=== PATIENT | male | born 1985 ===

== ENCOUNTER 2017-02-26 20:54 | Inpatient (IN) | payer BC ==
[~2017-02-26] VITALS: Ht 180.3 cm; Wt 80.2 kg
[~2017-02-26 20:54] MED LIST: MTR400 PO
[2017-02-26] MEDS ORDERED: SODIUM CHLORIDE 0.9% 1000ML 1,000 ML IV STA ×2 (22:05)
[2017-02-26] MEDS ORDERED: RANITIDINE HCL 50 MG/100 ML D5W IV STA ×2 (22:05→23:37)
[2017-02-26] MEDS ORDERED: DICYCLOMINE HCL 10 MG/ML 2 ML AMP IM ONE (22:15)
[2017-02-26] MEDS ORDERED: OPTIRAY 320 IV PRN (22:15)
[2017-02-26 22:45] LABS: BASO % 0.3 %; BASO ABS # 0.03 K/uL (0-0.2); COMPLETE YES; HEMATOCRIT 44.1 % (42-52); IG% 0.4 %; LYMPH % 19.1 %; LYMPH ABS # 2.09 K/uL (1.2-3.4); MEAN CELL VOLUME 88.4 fL (80-100); MEAN CORPUSCULAR HEMOGLOBIN 30.5 pg (25-34); MEAN CORPUSCULAR HGB CONC 34.5 g/dl (32-36); MEAN PLATELET VOLUME 10.4 fL (7.4-10.4); MONO % 11.4 %; NEUT % 67.8 %; PLATELET COUNT 298 K/uL (130-400); RED BLOOD COUNT 4.99 M/uL (4.7-6.1); WHITE BLOOD COUNT 10.95 K/uL (4.8-10.8)
[2017-02-26 22:52] LABS: URINE APPEARANCE CLEAR (CLEAR); URINE BILIRUBIN NEG (NEG); URINE COLOR DK YELLOW; URINE NITRITE NEG (NEG); URINE SPECIFIC GRAVITY 1.036 (1.000-1.030); UROBILINOGEN NEG (NEG)
[2017-02-26 22:53] LABS: MANUAL MICROSCOPIC REQUIRED? NO; REVIEW REQ? NO
[2017-02-26 22:57] LABS: BUN/CREATININE RATIO 10.2 (10-20); POTASSIUM 3.6 mmol/L (3.5-5.1)
[2017-02-26 23:00] LABS: CALCIUM 8.8 mg/dl (8.5-10.1)
[2017-02-26] MEDS ORDERED: DiphenhydrAMINE HCL 50 MG/ML VIAL IV STA (23:37)
[2017-02-26] MEDS ORDERED: EPINEPHRINE ADULT AUTO-INJECT 0.3 MG SYR ONE (23:42)
[2017-02-26] MEDS ORDERED: DEXAMETHASONE SOD INJ 10 MG/ML VIAL IV ONE (23:45)
[2017-02-27] MEDS ORDERED: CIPROFLOXACIN 400MG / 200ML D5W IV STA (00:13)
[2017-02-27] MEDS ORDERED: LORAZEPAM 2 MG/ML 1 ML VIAL IV STA (00:13)
[2017-02-27] MEDS ORDERED: METRONIDAZOLE 500MG / 100ML NSS IV STA (00:13)
[2017-02-27] MEDS ORDERED: POLYETHYLENE (MIRALAX) 17 GM PACK PO PRN (01:30)
[2017-02-27] MEDS ORDERED: KETOROLAC TROMETHAMINE 30 MG/ML VIAL IV PRN (01:30)
[2017-02-27] MEDS ORDERED: MoRPHine SULFATE 2 MG/ML CARP IV PRN (01:30)
[2017-02-27] MEDS ORDERED: ONDANSETRON INJ 2 MG/ML 2 ML VIAL IV PRN (01:30)
[2017-02-27] MEDS ORDERED: ACETAMINOPHEN 325 MG TAB PO PRN (01:30)
[2017-02-27 02:25] VITALS: BP 120/67; PULSE 81; TEMP 37; O2SAT 97; Ht 180.3 cm; Wt 80.2 kg
--- NOTE | 2017-02-27 02:38 | History and Physical ---
History & Physical Date & Time of Service: Feb 27, 2017 at 02:33 Chief Complaint: Abd Pain,Fever,Weakness,Indigestion Primary Care Physician: No Doctor, Assigned History of Present Illness Source: patient, spouse 31-year-old male with no significant past medical history presented to the ER with complaints of abdominal pain which started yesterday after dinner. He stated that the pain was intermittent in the lower abdominal area with radiation to his testicle, 6 to 8 on a scale of 10 in severity. Complains of nausea but denies any vomiting. Has a history of constipation but last bowel movement was this morning. He also developed fever with chills and recorded his temperature at 100.9F this morning. Denies any bright red bleeding per rectum or melena. Denies chest pain, shortness of breath, palpitations Past Medical/Surgical History No significant medical history Family History Family history of stroke in father at age 42. OK in grandfather at age 55 Hypertension Diabetes Social History Smoking Status: Former Smoker Alcohol Use: socially Marital Status: Allergies Coded Allergies: Cat Dander (Unverified Allergy, Unknown, EYES WATER, 11/14/15) Dust (Unverified Allergy, Unknown, EYES WATER/CAN'T BREATHE, 11/14/15) Uncoded Allergies: CT CONTRAST (Allergy, Intermediate, itchy, chest tightness, 02/27/17) Home Medications No Active Prescriptions or Reported Meds Review of Systems Constitutional: + fever, + chills, + sweats Eyes: No worsening of vision ENT: No hearing loss, No unusual epistaxis Respiratory: No cough, No sputum, No shortness of breath, No dyspnea on exertion Cardiovascular: No chest pain Abdomen: + pain, + nausea, + vomiting, + constipation, No diarrhea Musculoskeletal: No joint pain Genitourinary - Male: No hematuria, No dysuria Neurologic: No memory loss Psychiatric: No depression symptoms Endocrine: No fatigue Hematologic / Lymphatic: No abnormal bleeding/bruising Integumentary: No rash Physical Exam Vital Signs Date Time Temp Pulse Resp B/P (MAP) Pulse Ox O2 Delivery O2 Flow Rate FiO2 02/27/17 01:56 86 16 122/75 98 Room Air 02/26/17 23:41 80 02/26/17 23:40 83 24 122/87 98 Room Air 02/26/17 22:41 97 Room Air 02/26/17 21:11 37.1 103 18 128/78 97 Room Air General Appearance: WD/WN, + mild distress Head: normocephalic Eyes: normal inspection ENT: hearing grossly normal Neck: supple Respiratory/Chest: chest non-tender, lungs clear, normal breath sounds, no respiratory distress, no accessory muscle use Cardiovascular: regular rate, rhythm Abdomen/GI: normal bowel sounds, + tenderness (in lower abdominal area) Extremities/Musculoskelatal: normal inspection, no calf tenderness, no pedal edema Neurologic/Psych: alert, normal mood/affect, oriented x 3 Diagnostics Laboratory Results Results Past 24 Hours Test 02/26/17 22:25 02/26/17 22:29 02/26/17 22:38 Range/Units White Blood Count 10.95 4.8-10.8 K/uL Red Blood Count 4.99 4.7-6.1 M/uL Hemoglobin 15.2 14.0-18.0 g/dL Hematocrit 44.1 42-52 % Mean Corpuscular Volume 88.4 80-100 fL Mean Corpuscular Hemoglobin 30.5 25-34 pg Mean Corpuscular Hemoglobin Concent 34.5 32-36 g/dl Platelet Count 298 130-400 K/uL Mean Platelet Volume 10.4 7.4-10.4 fL Neutrophils (%) (Auto) 67.8 % Lymphocytes (%) (Auto) 19.1 % Monocytes (%) (Auto) 11.4 % Eosinophils (%) (Auto) 1.0 % Basophils (%) (Auto) 0.3 % Neutrophils # (Auto) 7.43 1.4-6.5 K/uL Lymphocytes # (Auto) 2.09 1.2-3.4 K/uL Monocytes # (Auto) 1.25 0.11-0.59 K/uL Eosinophils # (Auto) 0.11 0-0.5 K/uL Basophils # (Auto) 0.03 0-0.2 K/uL RDW Standard Deviation 41.9 36.4-46.3 fL RDW Coefficient of Variation 13.0 11.5-14.5 % Immature Granulocyte % (Auto) 0.4 % Immature Granulocyte # (Auto) 0.04 0.00-0.02 K/uL Sodium Level 139 136-145 mmol/L Potassium Level 3.6 3.5-5.1 mmol/L Chloride Level 104 98-107 mmol/L Carbon Dioxide Level 25 21-32 mmol/L Anion Gap 10.0 3-11 mmol/L Blood Urea Nitrogen 10 7-18 mg/dl Creatinine 1.00 0.60-1.40 mg/dl Est Creatinine Clear Calc Drug Dose 115.0 ml/min Estimated GFR () 116.5 Estimated GFR (Non- 100.6 BUN/Creatinine Ratio 10.2 10-20 Random Glucose 105 70-99 mg/dl Calcium Level 8.8 8.5-10.1 mg/dl Total Bilirubin 0.7 0.2-1 mg/dl Direct Bilirubin 0.2 0-0.2 mg/dl Aspartate Amino Transf (AST/SGOT) 20 15-37 U/L Alanine Aminotransferase (ALT/SGPT) 40 12-78 U/L Alkaline Phosphatase 97 45-117 U/L Total Protein 8.2 6.4-8.2 gm/dl Albumin 3.9 3.4-5.0 gm/dl Lipase 144 73-393 U/L Bedside Lactic Acid Venous 0.87 0.90-1.70 mmol/L Urine Color DK YELLOW Urine Appearance CLEAR CLEAR Urine pH 5.0 4.5-7.5 Urine Specific [place] 1.036 1.000-1.030 Urine Protein NEG NEG Urine Glucose (UA) NEG NEG Urine Ketones TRACE NEG Urine Occult Blood NEG NEG Urine Nitrite NEG NEG Urine Bilirubin NEG NEG Urine Urobilinogen NEG NEG Urine Leukocyte Esterase NEG NEG Microbiology Results 02/27/17 Blood Culture, Received Pending 02/27/17 Blood Culture, Received Pending Diagnostic Radiology CT abdomen and pelvis: Findings consistent with acute diverticulitis with suspected findings of microperforation. No organized or drainable fluid collection Impression Assessment and Plan 31-year-old male with no significant past medical history presented to the ER with complaints of abdominal pain which started yesterday after dinner. Associated with nausea, fevers and chills. CT abdomen and pelvis significant for acute diverticulitis with microperforation. Sigmoid Diverticulitis with microperforation: - Confirmed on CT - Nothing by mouth - IV fluids NSS at 125 mls/hr - Continue ciprofloxacin and Flagyl - Pain control with Toradol and morphine as needed - Gen. surgery consult DVT prophylaxis: Lovenox Full code Disposition: Admitted to [facility] Resident Physician Supervision Note: Pt seen/examined independently. I discussed the case with the resident and agree with the findings and plan as documented in the note. Any exceptions or clarifications are listed here: Healthy 31 y/o M with acute onset abdominal pain - diverticulitis with likely microperf seen on CT OE AAO x 3 S1,2 R CTAB + LLQ tenderness No CCE P: Placed on Cipro/Flagyl, NPO, IVF, pain control - surgery eval Documented By: Jeb Finnegan Level of Care Med/Surg Resuscitation Status FULL RESUSCITATION VTE Prophylaxis VTE Risk Assessment Done? Y/N: Yes Risk Level: Moderate Given or contraindicated: Enoxaparin (Lovenox)SQ Resident Tracking Resident Involvement: Resident Care Provided Care Provided: Adult Hospital Medicine
[2017-02-27] MEDS: SODIUM CHLORIDE 0.9% 1000ML 1,000 ML IV SCH ×2 (02:51→11:47)
[2017-02-27 03:03] LABS: PROTHROMBIN TIME (PATIENT) 10.4 SECONDS (9.0-12.0)
--- NOTE | 2017-02-27 03:24 | EMERGENCY ROOM VISIT NOTE ---
History First contact with patient: 21:59 Chief Complaint: ABDOMINAL PAIN Stated Complaint: DIVERTICULITIS LARGE INTESTINE Nursing Triage Summary: Pt c/o mid abdominal pain that started last night with associated nausea and vomiting. History of Present Illness The patient is a 31 year old male who presents to the Emergency Room with complaints of mid to lower abdominal pain for the past day with nausea and vomiting is Progressively worse. Patient's been eating a lot of take out. He just moved to the area with his . No history of similar symptoms in the past. Pain currently 5 out of 10. Ranges in severity. Nothing makes it better or worse. Patient denies chest pain, dyspnea, cough, congestion, diarrhea, back pain. He complains of subjective fever and chills. No colonoscopy in the past. Review of Systems See HPI for pertinent positives & negatives. A total of 10 systems reviewed and were otherwise negative. Past Medical/Surgical History Medical Problems: (1) Diverticulitis large intestine (2) No Known Active Medical Problems Social History Smoking Status: Former Smoker Smokeless Tobacco Use: No Drug Use: none Marital Status: Current/Historical Medications No Active Prescriptions or Reported Meds Allergies Coded Allergies: Cat Dander (Unverified Allergy, Unknown, EYES WATER, 11/14/15) Dust (Unverified Allergy, Unknown, EYES WATER/CAN'T BREATHE, 11/14/15) Uncoded Allergies: CT CONTRAST (Allergy, Intermediate, itchy, chest tightness, 02/27/17) Physical Exam Vital Signs Date Time Temp Pulse Resp B/P (MAP) Pulse Ox O2 Delivery O2 Flow Rate FiO2 02/26/17 23:41 80 02/26/17 23:40 83 24 122/87 98 Room Air 02/26/17 22:41 97 Room Air 02/26/17 21:11 37.1 103 18 128/78 97 Room Air Pain Rating (0-10): 0 Physical Exam VITALS: Vitals are noted on the nurse's note and reviewed by myself. Vital signs stable. GENERAL: Pleasant male anxious-appearing, in no acute distress, nondiaphoretic, well-developed well-nourished. SKIN: The skin was without rashes, erythema, edema, or bruising. There is no tenting of the skin. Capillary reflex less than 2 seconds. HEAD: Normocephalic atraumatic. EARS: External auditory canals clear, tympanic membranes pearly mcdowell without erythema or effusion bilaterally. EYES: Pupils equal round and reactive to light and accommodation. Conjunctivae without injection, sclerae without icterus. Extraocular movements intact. NOSE: Patent, turbinates without inflammation or discharge. MOUTH: Mucous membranes moist. Pharynx without erythema or exudate. Uvula midline. Airway patent. Tongue does not deviate. NECK: Supple without nuchal rigidity. No lymphadenopathy. No thyromegaly. Cervical spine is nontender. No JVD. HEART: Regular rate and rhythm without murmurs gallops or rubs. LUNGS: Clear to auscultation bilaterally without wheezes, rales or rhonchi. No dullness to percussion. No retractions or accessory muscle use. ABDOMEN: Positive bowel sounds x 4. Normal tympanic percussion. Soft, tender to palpation lower abdomen, no CVA tenderness, without masses or organomegaly. Salazar sign negative. No guarding or rebound tenderness. MUSCULOSKELETAL: No muscle atrophy, erythema, or edema noted. NEURO: Patient was alert and oriented to person place and time. Normal sensation to light and sharp touch. No focal neurological deficits. Medical Decision & Procedures Laboratory Results 02/26/17 22:25 Red Blood Count 4.99, Mean Corpuscular Volume 88.4, Mean Corpuscular Hemoglobin 30.5, Mean Corpuscular Hemoglobin Concent 34.5, Mean Platelet Volume 10.4, Neutrophils (%) (Auto) 67.8, Lymphocytes (%) (Auto) 19.1, Monocytes (%) (Auto) 11.4, Eosinophils (%) (Auto) 1.0, Basophils (%) (Auto) 0.3, Neutrophils # (Auto ) 7.43, Lymphocytes # (Auto) 2.09, Monocytes # (Auto) 1.25, Eosinophils # (Auto ) 0.11, Basophils # (Auto) 0.03 02/26/17 22:25 Test 02/26/17 22:25 02/26/17 22:29 02/26/17 22:38 White Blood Count 10.95 K/uL (4.8-10.8) Red Blood Count 4.99 M/uL (4.7-6.1) Hemoglobin 15.2 g/dL (14.0-18.0) Hematocrit 44.1 % (42-52) Mean Corpuscular Volume 88.4 fL (80-100) Mean Corpuscular Hemoglobin 30.5 pg (25-34) Mean Corpuscular Hemoglobin Concent 34.5 g/dl (32-36) Platelet Count 298 K/uL (130-400) Mean Platelet Volume 10.4 fL (7.4-10.4) Neutrophils (%) (Auto) 67.8 % Lymphocytes (%) (Auto) 19.1 % Monocytes (%) (Auto) 11.4 % Eosinophils (%) (Auto) 1.0 % Basophils (%) (Auto) 0.3 % Neutrophils # (Auto) 7.43 K/uL (1.4-6.5) Lymphocytes # (Auto) 2.09 K/uL (1.2-3.4) Monocytes # (Auto) 1.25 K/uL (0.11-0.59) Eosinophils # (Auto) 0.11 K/uL (0-0.5) Basophils # (Auto) 0.03 K/uL (0-0.2) RDW Standard Deviation 41.9 fL (36.4-46.3) RDW Coefficient of Variation 13.0 % (11.5-14.5) Immature Granulocyte % (Auto) 0.4 % Immature Granulocyte # (Auto) 0.04 K/uL (0.00-0.02) Prothrombin Time 10.4 SECONDS (9.0-12.0) Prothromb Time International Ratio 1.0 (0.9-1.1) Anion Gap 10.0 mmol/L (3-11) Est Creatinine Clear Calc Drug Dose 115.0 ml/min Estimated GFR () 116.5 Estimated GFR (Non- 100.6 BUN/Creatinine Ratio 10.2 (10-20) Calcium Level 8.8 mg/dl (8.5-10.1) Total Bilirubin 0.7 mg/dl (0.2-1) Direct Bilirubin 0.2 mg/dl (0-0.2) Aspartate Amino Transf (AST/SGOT) 20 U/L (15-37) Alanine Aminotransferase (ALT/SGPT) 40 U/L (12-78) Alkaline Phosphatase 97 U/L (45-117) Total Protein 8.2 gm/dl (6.4-8.2) Albumin 3.9 gm/dl (3.4-5.0) Lipase 144 U/L (73-393) Bedside Lactic Acid Venous 0.87 mmol/L (0.90-1.70) Urine Color DK YELLOW Urine Appearance CLEAR (CLEAR) Urine pH 5.0 (4.5-7.5) Urine Specific [place] 1.036 (1.000-1.030) Urine Protein NEG (NEG) Urine Glucose (UA) NEG (NEG) Urine Ketones TRACE (NEG) Urine Occult Blood NEG (NEG) Urine Nitrite NEG (NEG) Urine Bilirubin NEG (NEG) Urine Urobilinogen NEG (NEG) Urine Leukocyte Esterase NEG (NEG) Medications Administered Medications (Trade) Dose Ordered Sig/Keegan Route Start Time Stop Time Status Last Admin Dose Admin Ranitidine HCl (zANTac IV) 50 mg NOW STAT IV 02/26/17 22:05 02/26/17 22:07 DC 02/26/17 22:26 50 MG Dicyclomine HCl (Bentyl Inj) 20 mg NOW ONCE IM 02/26/17 22:15 02/26/17 22:16 DC 02/26/17 22:27 20 MG Sodium Chloride 1,000 ml @ 999 mls/hr Q1H1M STAT IV 02/26/17 22:05 02/26/17 23:05 DC 02/26/17 22:27 999 MLS/HR Sodium Chloride 1,000 ml @ 125 mls/hr Q8H STAT IV 02/26/17 22:05 02/27/17 02:45 DC 02/26/17 23:44 125 MLS/HR Diphenhydramine HCl (Benadryl Inj) 50 mg NOW STAT IV 02/26/17 23:37 02/26/17 23:38 DC 02/26/17 23:43 50 MG Ranitidine HCl (zANTac IV) 50 mg NOW STAT IV 02/26/17 23:37 02/26/17 23:38 DC 02/26/17 23:54 50 MG Dexamethasone Sodium Phosphate (Decadron Inj) 10 mg NOW ONCE IV 02/26/17 23:45 02/26/17 23:46 DC 02/26/17 23:43 10 MG Metronidazole (Flagyl / Nss) 500 mg NOW STAT IV 02/27/17 00:13 02/27/17 00:15 DC 02/27/17 00:54 500 MG Ciprofloxacin/ Dextrose (Cipro / D5W) 400 mg NOW STAT IV 02/27/17 00:13 02/27/17 00:15 DC 02/27/17 00:54 400 MG Lorazepam (Ativan Inj) 1 mg NOW STAT IV 02/27/17 00:13 02/27/17 00:15 DC 02/27/17 00:36 1 MG ED Course Prior records/ancillary studies reviewed. Triage Nursing notes reviewed. Additional history obtained from family. The patient's history was concerning for abdominal pain. Differential diagnosis: Etiologies such as appendicitis, diverticulitis, PUD, biliary pathology, UTI, pancreatitis, obstruction, mesenteric ischemia, aortic pathology, infections, inflammatory bowel disease, renal colic, as well as others were entertained. Physical examination findings: As above. ER treatment provided: Normal saline, Zantac, Bentyl, Flagyl, Cipro, Decadron, Benadryl On reassessment the patient felt better. Diagnostics interpreted by me: The labs revealed leukocytosis, blood cultures pending Imaging studies: CT concerning for diverticulitis with microperforation When patient came back from CT he felt itchy and tightness in his throat and chest. He was given Benadryl, Zantac and Decadron. Symptoms resolved. He then became anxious was given Ativan. No signs of anaphylactic shock. No rash. No airway involvement. No facial swelling. No tongue edema. This is marked as an allergy. Consultation: A consultation was placed with Dr Finnegan. The case was discussed and diagnostics were reviewed. The patient was evaluated in the ER for further treatment. Exam and history seem consistent with diverticulitis. Patient was started on antibiotics. He will be evaluated by medicine for admission. Family agrees to treatment plan of admission. He was reassessed multiple times and remained stable. No signs of anaphylaxis. By the evaluation outlined above emergent etiologies such as appendicitis, PUD , biliary pathology, UTI, pancreatitis, obstruction, mesenteric ischemia, aortic pathology, inflammatory bowel disease, renal colic, as well as others were deemed relatively unlikely. The pt informed about the findings as listed above. All questions were answered and pleased with the treatment. case reviewed with my Attending. Medical Decision As above Impression Primary Impression: Diverticulitis large intestine Departure Information Dispostion Being Evaluated By Hospitalist Condition FAIR Prescriptions No Active Prescriptions or Reported Meds Referrals No Doctor, Assigned (PCP) Forms Call Back Authorization, HOME CARE DOCUMENTATION FORM, IMPORTANT VISIT INFORMATION Patient Instructions My [facility] Problem Qualifiers Primary Impression: Diverticulitis large intestine Diverticulitis bleeding: without bleeding Diverticulitis complication: with perforation Qualified Codes: K57.20 - Diverticulitis of large intestine with perforation and abscess without bleeding
--- NOTE | 2017-02-27 06:26 | DIAGNOSTIC IMAGING REPORT ---
ABDOMEN AND PELVIS CT WITH IV CONTRAST CT DOSE: 457.95 mGy.cm HISTORY: Pain. Nausea. lower abd pain TECHNIQUE: Multiaxial CT images of the abdomen and pelvis were performed following the use of intravenous contrast. COMPARISON STUDY: None. FINDINGS: Lung bases are clear. Liver spleen and pancreas are unremarkable. Kidneys negative for hydronephrosis. The upper abdominal bowel pattern is nonobstructive. The appendix is normal. Findings of considerable wall thickening of the sigmoid colon with moderate pericolonic infiltrative change. Transaxial image 73 suggests a small microperforation. There is no evidence for drainable abscess or collection. Small amount of free reactive fluid within the pelvic cul-de-sac. Bladder is midline. IMPRESSION: 1. Acute sigmoid diverticulitis. 2. Small microperforation with no evidence for drainable abscess collection or obstructive change. Electronically signed by: Behzad Tejada M.D. 02/27/2017 6:25 AM Dictated Date/Time: 02/27/2017 6:23 AM
[2017-02-27 07:48] VITALS: BP 106/62; PULSE 73; TEMP 36.8; O2SAT 96
--- NOTE | 2017-02-27 08:36 | Hospitalist Progress Note ---
Hospitalist Progress Note Date of Service Feb 27, 2017. Objective Vital Signs Date Time Temp Pulse Resp B/P (MAP) Pulse Ox O2 Delivery O2 Flow Rate FiO2 02/27/17 07:48 36.8 73 18 106/62 (77) 96 Room Air 02/27/17 02:25 37.0 81 16 120/67 97 Room Air 02/27/17 02:20 Room Air 02/27/17 01:56 86 16 122/75 98 Room Air 02/26/17 23:41 80 02/26/17 23:40 83 24 122/87 98 Room Air 02/26/17 22:41 97 Room Air 02/26/17 21:11 37.1 103 18 128/78 97 Room Air Laboratory Results Last 24 Hours Test 02/26/17 22:25 02/26/17 22:29 02/26/17 22:38 White Blood Count 10.95 K/uL Red Blood Count 4.99 M/uL Hemoglobin 15.2 g/dL Hematocrit 44.1 % Mean Corpuscular Volume 88.4 fL Mean Corpuscular Hemoglobin 30.5 pg Mean Corpuscular Hemoglobin Concent 34.5 g/dl Platelet Count 298 K/uL Mean Platelet Volume 10.4 fL Neutrophils (%) (Auto) 67.8 % Lymphocytes (%) (Auto) 19.1 % Monocytes (%) (Auto) 11.4 % Eosinophils (%) (Auto) 1.0 % Basophils (%) (Auto) 0.3 % Neutrophils # (Auto) 7.43 K/uL Lymphocytes # (Auto) 2.09 K/uL Monocytes # (Auto) 1.25 K/uL Eosinophils # (Auto) 0.11 K/uL Basophils # (Auto) 0.03 K/uL RDW Standard Deviation 41.9 fL RDW Coefficient of Variation 13.0 % Immature Granulocyte % (Auto) 0.4 % Immature Granulocyte # (Auto) 0.04 K/uL Prothrombin Time 10.4 SECONDS Prothromb Time International Ratio 1.0 Sodium Level 139 mmol/L Potassium Level 3.6 mmol/L Chloride Level 104 mmol/L Carbon Dioxide Level 25 mmol/L Anion Gap 10.0 mmol/L Blood Urea Nitrogen 10 mg/dl Creatinine 1.00 mg/dl Est Creatinine Clear Calc Drug Dose 115.0 ml/min Estimated GFR () 116.5 Estimated GFR (Non- 100.6 BUN/Creatinine Ratio 10.2 Random Glucose 105 mg/dl Calcium Level 8.8 mg/dl Total Bilirubin 0.7 mg/dl Direct Bilirubin 0.2 mg/dl Aspartate Amino Transf (AST/SGOT) 20 U/L Alanine Aminotransferase (ALT/SGPT) 40 U/L Alkaline Phosphatase 97 U/L Total Protein 8.2 gm/dl Albumin 3.9 gm/dl Lipase 144 U/L Bedside Lactic Acid Venous 0.87 mmol/L Urine Color DK YELLOW Urine Appearance CLEAR Urine pH 5.0 Urine Specific [place] 1.036 Urine Protein NEG Urine Glucose (UA) NEG Urine Ketones TRACE Urine Occult Blood NEG Urine Nitrite NEG Urine Bilirubin NEG Urine Urobilinogen NEG Urine Leukocyte Esterase NEG Assessment and Plan 31-year-old male with no significant past medical history presented to the ER with complaints of abdominal pain which started yesterday after dinner. Associated with nausea, fevers and chills. CT abdomen and pelvis significant for acute diverticulitis with microperforation. Sigmoid Diverticulitis with microperforation: - Confirmed on CT - Keep NPO - IV fluids NSS at 125 mls/hr - Leukocytosis is mild, 10K with small left shift. Afebrile, vitals stable - Continue ciprofloxacin and Flagyl - Pain control with Toradol and morphine as needed - Gen. surgery consult DVT prophylaxis: tiffany Jorgensen, scds CODE STATUS: Full code Disposition: From home
[2017-02-27] MEDS ORDERED: METRONIDAZOLE / NSS 500 MG in PREMIXED NSS 100 ML IV SCH (09:00)
[2017-02-27] MEDS ORDERED: ENOXAPARIN 40 MG/0.4 ML SYR SQ SCH (09:00)
[2017-02-27] MEDS ORDERED: CIPROFLOXACIN / D5W 400 MG in PREMIXED IN D5W 200 ML IV SCH (12:00)
[2017-02-27] MEDS ORDERED: CPR500 PO (12:39)
[2017-02-27] MEDS ORDERED: ONDA4TAB10 SL (12:39)
[2017-02-27] MEDS ORDERED: METR-162 PO (12:39)
--- NOTE | 2017-02-27 12:47 | Discharge Instructions ---
Discharge Instructions Date of Service Feb 27, 2017. Admission Reason for Admission: Diverticulitis Large Intestine Discharge Discharge Diagnosis / Problem: Microperforation of sigmoid diverticulosis Discharge Goals Goal(s): Decrease discomfort, Improve function, Increase independence, Improve disease control Activity Recommendations Activity Limitations: resume your previous activity Lifting Limitations: gradually increase as tolerated Exercise/Sports Limitations: none, rest today, gradually increase as tolerated May Resume Sexual Activity: when tolerated Shower/Bathe: no limitations Driving or Machine Use: no limitations . Instructions / Follow-Up Instructions / Follow-Up You were admitted to [facility] with acute abdominal pain and diagnosed with acute microperforation of sigmoid diverticulitis. During your stay here you were treated with antibiotics (ciprofloxacin and metronidazole), intravenous fluids, pain medication and anti-nausea medication. Imaging studies which were completed include CT of the abdomen showing microperforation of sigmoid diverticulitis Your pain improved and you were able to tolerate a diet. Continue taking antibiotics as directed Cipro (ciprofloxacin) 500 mg twice daily for 9 days Flagyl (metronidazole) 500 mg three times daily for 9 days. Please try to exercise for at least 30 minutes a day with a cardiovascular workout. You should try to consume adequate amounts of vegetables, fruits and whole grains while limiting fats and sugars. - Your residential glucose to test for diabetes ( Hemoglobin A1C is 5.4) was normal, which means you do not have diabetes. Things to watch for: If you develop fever (temperature greater than 100.5 F), chills or sweats, worsening abdominal pain, nausea, vomiting, or are unable to eat food or water, please call your family physician or come back to the Emergency department. Follow up with your Primary Care Provider within 1 week. An appointment has been requested for you. Current Hospital Diet Patient's current hospital diet: Clear Liquid Diet Discharge Diet Recommended Diet: Regular Diet Pending Studies Studies pending at discharge: no Medical Emergencies . Who to Call and When: Medical Emergencies: If at any time you feel your situation is an emergency, please call 911 immediately. . Non-Emergent Contact Non-Emergency issues call your: Primary Care Provider Call Non-Emergent contact if: you have a fever, temperature is above 100.5, your pain is not controlled, your pain is worsening, your pain is unusual for you, your pain is concerning you, you have any medication questions . Past History Medical & Surgical History: (1) Diverticulitis large intestine . "Provider Documentation" section prepared by Meka Loaiza. . VTE Core Measure Inpt VTE Proph given/why not?: Enoxaparin (Lovenox)OCRINA, Poonam Pak, SCD's
[2017-02-27 13:50] LABS: ESTIMATED AVERAGE GLUCOSE 108 mg/dl; HA1C FLAG Normal (Normal)
[2017-02-27 13:57] VITALS: BP 106/62; PULSE 73; TEMP 36.8; O2SAT 96
--- NOTE | 2017-02-27 14:17 | Discharge Summary ---
Discharge Summary Date of Service Feb 27, 2017. (Susan Loaiza PA-C) Discharge Summary Admission Date: Feb 27, 2017 at 01:20 Discharge Date: Feb 27, 2017 Discharge Disposition: Home Principal Diagnosis: microperforation with sigmoid diverticulitis Problems/Secondary Diagnoses: None Procedures: ABDOMEN AND PELVIS CT WITH IV CONTRAST CT DOSE: 457.95 mGy.cm HISTORY: Pain. Nausea. lower abd pain TECHNIQUE: Multiaxial CT images of the abdomen and pelvis were performed following the use of intravenous contrast. COMPARISON STUDY: None. FINDINGS: Lung bases are clear. Liver spleen and pancreas are unremarkable. Kidneys negative for hydronephrosis. The upper abdominal bowel pattern is nonobstructive. The appendix is normal. Findings of considerable wall thickening of the sigmoid colon with moderate pericolonic infiltrative change. Transaxial image 73 suggests a small microperforation. There is no evidence for drainable abscess or collection. Small amount of free reactive fluid within the pelvic cul-de-sac. Bladder is midline. IMPRESSION: 1. Acute sigmoid diverticulitis. 2. Small microperforation with no evidence for drainable abscess collection or obstructive change. Consultations: None (Susan Loaiza PA-C) Medication Reconciliation New Medications: Ciprofloxacin (Ciprofloxacin HCl) 500 Mg Tab 500 MG PO BID for 9 Days, #18 TAB Metronidazole (Flagyl) 500 Mg Tab 500 MG PO TID for 9 Days, #27 TAB Ondasetron Odt (Zofran Odt) 4 Mg Tab 4 MG SL Q6H for Nausea for 7 Days, #28 TAB Discharge Exam The patient was seen and examined this morning. Pt reports doing well this morning, he has no pain at all when I saw him. He did not eat anything for breakfast this morning, and is requesting to try food; he was able to tolerate a clear liquid diet without difficulty for lunch and was requesting to go home. He denies any fevers, sweats or chills. He admits to recently having a very poor diet with only eating [place] food- like bread, rice and noodles, along with minimal fruits and vegetables. He plans to start eating a healthier exprecially since he normally weighs around 65-70 kg, and is now 80 kg per eMAR. ROS: Constitutional: No fever, sweats or chills Eyes: No diplopia, no worsening or blurred vision ENT: normal hearing, no trouble swallowing Respiratory: No cough, sputum, dyspnea at rest or on exertion Cardiovascular: No chest pain, tightness or palpitations Abdomen: No pain, nausea, vomiting, diarrhea or constipation Musculoskeletal: No joint pain, calf pain, swelling Neurologic: No weakness, numbness/tingling, or balance problems Psychiatric: No anxiety or depression Skin: No rash or itch PE: General: awake, alert, no apparent distress Head: Normocephalic, atraumatic ENT: PERRL, EOMI, no pharyngeal exudate, mucous membranes moist Chest: Clear to auscultation, on room air, no adventitious breath sounds Cardiac: Regular rate and rhythm, no murmur, no JVD, normal peripheral pulses, good capillary refill Abdominal: NABS x 4 quadrants, soft, nontender to palpation, no rebound, guarding or tenderness Extremities: Normal inspection, no peripheral edema or erythema, calfs nontender to palpation Psych: Normal mood and affect Neuro: AAO x 3, strength intact bilaterally and related 5/5, no motor deficits, speech is clear, no peripheral sensory deficits (Susan Loaiza PA-C) PA Physician Supervision Note: I interviewed and examined the patient. Discussed with Meka Loaiza PAC and agree with findings and plan as documented in the note. Any exceptions or clarifications are listed here: None PT is with complete resolution of pain, tolerating diet and ambulatory vitals stable abd is soft and non tender will have home on course of antibiotics with follow up with a pcp of his choosing Documented By: Ryan Coronel (Ryan Coronel M.D.) Hospital Course H&P per Nazia Kinsey MD., resident History of Present Illness Source: patient, spouse 31-year-old male with no significant past medical history presented to the ER with complaints of abdominal pain which started yesterday after dinner. He stated that the pain was intermittent in the lower abdominal area with radiation to his testicle, 6 to 8 on a scale of 10 in severity. Complains of nausea but denies any vomiting. Has a history of constipation but last bowel movement was this morning. He also developed fever with chills and recorded his temperature at 100.9F this morning. Denies any bright red bleeding per rectum or melena. Denies chest pain, shortness of breath, palpitations PE: Physical Exam Vital Signs Date Time Temp Pulse Resp B/P (MAP) Pulse Ox O2 Delivery O2 Flow Rate FiO2 02/27/17 01:56 86 16 122/75 98 Room Air 02/26/17 23:41 80 02/26/17 23:40 83 24 122/87 98 Room Air 02/26/17 22:41 97 Room Air 02/26/17 21:11 37.1 103 18 128/78 97 Room Air General Appearance: WD/WN, + mild distress Head: normocephalic Eyes: normal inspection ENT: hearing grossly normal Neck: supple Respiratory/Chest: chest non-tender, lungs clear, normal breath sounds, no respiratory distress, no accessory muscle use Cardiovascular: regular rate, rhythm Abdomen/GI: normal bowel sounds, + tenderness (in lower abdominal area) Extremities/Musculoskelatal: normal inspection, no calf tenderness, no pedal edema Neurologic/Psych: alert, normal mood/affect, oriented x 3 Hospital Course: 31-year-old male with no significant past medical history presented to the ER with complaints of abdominal pain which started on 02/25/17 after dinner. Associated with nausea, fevers and chills. CT abdomen and pelvis significant for acute diverticulitis with microperforation. The patient had a small leukocytosis, but was afebrile during admission. He was started on cipro and flagyl for antibiotic coverage, initially IV and then transitioned to oral meds ; pt will continue these for 9 more days to complete a 10 day course. His abdominal pain completely resolved and was tolerating a diet prior to discharge. Prior to discharge, PCP was set up for the patient and a follow up was scheduled within the next week. Sigmoid Diverticulitis with microperforation: - Confirmed on CT - IV fluids NSS at 125 mls/hr - Leukocytosis is mild, 10K with small left shift. Afebrile, vitals stable - Continue ciprofloxacin and Flagyl x 9 more days to complete a 10 day course. - Pain control with Toradol and morphine as needed - pt did not require pain medicaiton - Tolerated clears prior to dc, educated to advance as tolerated and to call his PCP or return to the ED if he experiences worsening abdominal pain, nausea, vomiting, diarrhea, fevers, chills, sweats. DVT prophylaxis: Lovenox, teds, scds CODE STATUS: Full code Disposition: From home, discharge to home today Total Time Spent: Greater than 30 minutes This includes examination of the patient, discharge planning, medication reconciliation, and communication with other providers. (Susan Loaiza PA-C) Discharge Instructions Please refer to the electronic Patient Visit Report (Discharge Instructions) for additional information. (Susan Loaiza PA-C) Follow-Up Follow up with your Primary Care Provider within 1 week. (Susan Loaiza PA-C)
== END 2017-02-27 14:45 | disposition home or self-care (01) | DRG 392 ==
LOC: C.EDB 20:55 → C.MSW 02-27 01:20 → ENRESERV 02-27 01:37
PROVIDERS: ADMIT Family Medicine; ATTEND Internal Medicine
DX: K57.20 Diverticulitis of large intestine with perforation and abscess without bleeding (principal); Z87.891 Personal history of nicotine dependence

== ENCOUNTER 2017-03-06 14:41 | Emergency (ER) | payer BC ==
[~2017-03-06] VITALS: Ht 180.3 cm; Wt 87.6 kg
[~2017-03-06 14:41] MED LIST changes: +CPR500 PO; +METR-162 PO; -MTR400 PO; +ONDA4TAB10 SL
[2017-03-06 14:47] VITALS: TEMP 36.6; Ht 180.3 cm; Wt 87.6 kg
[2017-03-06] MEDS ORDERED: SODIUM CHLORIDE 0.9% 1000ML 1,000 ML IV STA (15:53)
[2017-03-06] MEDS ORDERED: PIPERACILLIN/TAZOBACTAM 4.5 GM/100ML D5W IV STA (15:53)
[2017-03-06] MEDS ORDERED: SODIUM CHLORIDE 0.9% 1000ML 500 ML IV STA (15:53)
[2017-03-06 16:25] LABS: BASO % 0.5 %; BASO ABS # 0.04 K/uL (0-0.2); COMPLETE YES; EOS % 1.1 %; HEMATOCRIT 44.6 % (42-52); IG% 0.4 %; LYMPH ABS # 3.06 K/uL (1.2-3.4); MEAN CELL VOLUME 86.9 fL (80-100); MEAN CORPUSCULAR HEMOGLOBIN 30.2 pg (25-34); MEAN CORPUSCULAR HGB CONC 34.8 g/dl (32-36); MEAN PLATELET VOLUME 10.2 fL (7.4-10.4); PLATELET COUNT 352 K/uL (130-400); RED BLOOD COUNT 5.13 M/uL (4.7-6.1); WHITE BLOOD COUNT 8.05 K/uL (4.8-10.8)
[2017-03-06] MEDS ORDERED: MISCCAP80 PO (16:27)
[2017-03-06 16:45] LABS: BUN/CREATININE RATIO 11.5 (10-20); CALCIUM 8.6 mg/dl (8.5-10.1); POTASSIUM 3.9 mmol/L (3.5-5.1)
[2017-03-06 16:48] LABS: ALB/GLOB RATIO 1.1 (0.9-2)
[2017-03-06 17:03] LABS: URINE APPEARANCE CLEAR (CLEAR); URINE BILIRUBIN NEG (NEG); URINE COLOR YELLOW; URINE EPITHELIAL CELL AUTO 0-5 /lpf (0-5); URINE NITRITE NEG (NEG); URINE SPECIFIC GRAVITY 1.018 (1.000-1.030); UROBILINOGEN NEG (NEG)
[2017-03-06 17:25] LABS: MANUAL MICROSCOPIC REQUIRED? NO; REVIEW REQ? NO
--- NOTE | 2017-03-06 18:45 | DIAGNOSTIC IMAGING REPORT ---
CT SCAN OF THE ABDOMEN AND PELVIS WITHOUT CONTRAST CLINICAL HISTORY: Lower abdominal pain COMPARISON STUDY: 02/26/2017 TECHNIQUE: CT scan of the abdomen and pelvis was performed from the lung bases to the proximal femurs. Images are reviewed in the axial, sagittal, and coronal planes. IV contrast was not administered for this examination. CT DOSE: 406.36 mGy.cm FINDINGS: Lower chest: There are minor basilar atelectatic changes Liver: The unenhanced liver is normal in size, contour, and attenuation. There is no intrahepatic biliary ductal dilatation. Gallbladder: Unremarkable. Spleen: Normal in size and attenuation. Pancreas: Unremarkable. Adrenal glands: Unremarkable. Kidneys: No renal, ureteral, or bladder calculi are visualized. Bowel: There are no transition zones indicate bowel obstruction. The appendix appears normal. There is colonic diverticulosis. There is mild sigmoid diverticulitis which appears improved when compared the preceding study. Peritoneum: There is no intraperitoneal free air or abdominal ascites. Vasculature: The abdominal aorta is normal in course and caliber. Adenopathy: None. Pelvic viscera: The bladder, and pelvic viscera are unremarkable. Skeletal structures: No destructive osseous lesions are seen. There is a stable small sclerotic lesion with a lucent center involving the medial aspect of the left femoral neck. IMPRESSION: 1. Improving sigmoid diverticulitis. No evidence of abscess. 2. Normal appendix 3. No evidence of bowel obstruction. No evidence of free air. Electronically signed by: Davion Lee M.D. 03/06/2017 6:44 PM Dictated Date/Time: 03/06/2017 6:40 PM
--- NOTE | 2017-03-06 19:30 | EMERGENCY ROOM VISIT NOTE ---
History First contact with patient: 15:37 Chief Complaint: ABDOMINAL PAIN Stated Complaint: ABD/BACK PAIN History of Present Illness Patient is a 31-year-old male who returns to the emergency department for abdominal pain, bloating and pressure 1 day. The patient was seen here one week ago for abdominal pain and was diagnosed with diverticulitis with a microperforation. He was hospitalized for 24 hours, and was discharged on Cipro and Flagyl which he states he has been taking as prescribed. The patient reports that he was feeling better until last evening. He had returned to eating a fairly normal diet, trying to eat a low fiber diet. He notes last night he had some increased bloating and noted some increased discomfort. He describes a general aching sensation, and presently rates it a 2/10. He states that it was not as painful as it was when he initially presented to the emergency department one week ago. He took an antacid overnight. He denies any fever. No nausea or vomiting. He reports normal, formed bowel movements without blood or melena, his last bowel movements were earlier today. He did see Gina HAMPTON last week at which point he was feeling much improved. Review of Systems Review of systems as per HPI. All other systems reviewed were negative. 10 systems reviewed. Past Medical/Surgical History Medical Problems: (1) Diverticulitis large intestine (2) Diverticulosis (3) Left arm cellulitis Electronic medical records are reviewed and summarized as above/below. See Problem List. Social History Smoking Status: Never Smoker Drug Use: none Marital Status: Current/Historical Medications Scheduled Ciprofloxacin (Ciprofloxacin HCl), 500 MG PO BID Metronidazole (Flagyl), 500 MG PO TID Ondasetron Odt (Zofran Odt), 4 MG SL Q6H Probiotic Product (Probiotic), 1 CAP PO DAILY Allergies Coded Allergies: Cat Dander (Unverified Allergy, Unknown, EYES WATER, 03/06/17) Dust (Unverified Allergy, Unknown, EYES WATER/CAN'T BREATHE, 03/06/17) Iodinated Diagnostic Agents (Unverified Allergy, Unknown, THROAT CLOSING, 03/06/17) Uncoded Allergies: CT CONTRAST (Allergy, Intermediate, itchy, chest tightness, 02/27/17) Physical Exam Vital Signs Date Time Temp Pulse Resp B/P (MAP) Pulse Ox O2 Delivery O2 Flow Rate FiO2 03/06/17 19:32 55 16 113/77 99 Room Air 03/06/17 18:50 57 16 120/68 93 Room Air 03/06/17 16:53 60 16 107/68 98 Room Air 03/06/17 14:47 36.6 67 18 117/74 98 Room Air Physical Exam CONSTITUTIONAL: Patient is a well-appearing 31-year-old male who is awake and alert and in no acute distress. Vital signs are stable. He is afebrile. EYES: Pupils equal, round, reactive to light and accommodation. EOMs intact without nystagmus. Sclera are anicteric. ENT: Tympanic membranes intact, with normal landmarks. External canals are clear. Oral and nasopharynx are clear. Mucous membranes are moist, no lesions , tongue and gums appear normal. CARDIOVASCULAR: Regular rate and rhythm, with normal S1 and S2, no murmur or gallop or rub is heard. No carotid bruits auscultated. No JVD. Peripheral pulses easily palpable. RESPIRATORY: Breath sounds equal and clear to auscultation without wheezes, rales, or rhonchi heard. Full and equal chest expansion without accessory muscle use or retractions. ABDOMEN: Bowel sounds are present. Abdomen is soft, nondistended, tender to percussion and palpation in the left lower quadrant, without guarding, rebound or rigidity. INTEGUMENTARY: No lesions or rash, normal skin turgor. LYMPH: No lymphadenopathy. Medical Decision & Procedures ER Provider Diagnostic Interpretation: CT SCAN OF THE ABDOMEN AND PELVIS WITHOUT CONTRAST CLINICAL HISTORY: Lower abdominal pain COMPARISON STUDY: 02/26/2017 TECHNIQUE: CT scan of the abdomen and pelvis was performed from the lung bases to the proximal femurs. Images are reviewed in the axial, sagittal, and coronal planes. IV contrast was not administered for this examination. CT DOSE: 406.36 mGy.cm FINDINGS: Lower chest: There are minor basilar atelectatic changes Liver: The unenhanced liver is normal in size, contour, and attenuation. There is no intrahepatic biliary ductal dilatation. Gallbladder: Unremarkable. Spleen: Normal in size and attenuation. Pancreas: Unremarkable. Adrenal glands: Unremarkable. Kidneys: No renal, ureteral, or bladder calculi are visualized. Bowel: There are no transition zones indicate bowel obstruction. The appendix appears normal. There is colonic diverticulosis. There is mild sigmoid diverticulitis which appears improved when compared the preceding study. Peritoneum: There is no intraperitoneal free air or abdominal ascites. Vasculature: The abdominal aorta is normal in course and caliber. Adenopathy: None. Pelvic viscera: The bladder, and pelvic viscera are unremarkable. Skeletal structures: No destructive osseous lesions are seen. There is a stable small sclerotic lesion with a lucent center involving the medial aspect of the left femoral neck. IMPRESSION: 1. Improving sigmoid diverticulitis. No evidence of abscess. 2. Normal appendix 3. No evidence of bowel obstruction. No evidence of free air. Laboratory Results 03/06/17 16:15 Red Blood Count 5.13, Mean Corpuscular Volume 86.9, Mean Corpuscular Hemoglobin 30.2, Mean Corpuscular Hemoglobin Concent 34.8, Mean Platelet Volume 10.2, Neutrophils (%) (Auto) 52.0, Lymphocytes (%) (Auto) 38.0, Monocytes (%) (Auto) 8.0, Eosinophils (%) (Auto) 1.1, Basophils (%) (Auto) 0.5, Neutrophils # (Auto) 4.19, Lymphocytes # (Auto) 3.06, Monocytes # (Auto) 0.64, Eosinophils # (Auto) 0.09, Basophils # (Auto) 0.04 03/06/17 16:15 Test 03/06/17 16:15 03/06/17 16:49 White Blood Count 8.05 K/uL (4.8-10.8) Red Blood Count 5.13 M/uL (4.7-6.1) Hemoglobin 15.5 g/dL (14.0-18.0) Hematocrit 44.6 % (42-52) Mean Corpuscular Volume 86.9 fL (80-100) Mean Corpuscular Hemoglobin 30.2 pg (25-34) Mean Corpuscular Hemoglobin Concent 34.8 g/dl (32-36) Platelet Count 352 K/uL (130-400) Mean Platelet Volume 10.2 fL (7.4-10.4) Neutrophils (%) (Auto) 52.0 % Lymphocytes (%) (Auto) 38.0 % Monocytes (%) (Auto) 8.0 % Eosinophils (%) (Auto) 1.1 % Basophils (%) (Auto) 0.5 % Neutrophils # (Auto) 4.19 K/uL (1.4-6.5) Lymphocytes # (Auto) 3.06 K/uL (1.2-3.4) Monocytes # (Auto) 0.64 K/uL (0.11-0.59) Eosinophils # (Auto) 0.09 K/uL (0-0.5) Basophils # (Auto) 0.04 K/uL (0-0.2) RDW Standard Deviation 40.2 fL (36.4-46.3) RDW Coefficient of Variation 12.6 % (11.5-14.5) Immature Granulocyte % (Auto) 0.4 % Immature Granulocyte # (Auto) 0.03 K/uL (0.00-0.02) Anion Gap 7.0 mmol/L (3-11) Est Creatinine Clear Calc Drug Dose 115.0 ml/min Estimated GFR () 116.5 Estimated GFR (Non- 100.6 BUN/Creatinine Ratio 11.5 (10-20) Calcium Level 8.6 mg/dl (8.5-10.1) Total Bilirubin 0.5 mg/dl (0.2-1) Aspartate Amino Transf (AST/SGOT) 11 U/L (15-37) Alanine Aminotransferase (ALT/SGPT) 27 U/L (12-78) Alkaline Phosphatase 83 U/L (45-117) Total Protein 8.0 gm/dl (6.4-8.2) Albumin 4.2 gm/dl (3.4-5.0) Globulin 3.8 gm/dl (2.5-4.0) Albumin/Globulin Ratio 1.1 (0.9-2) Lipase 146 U/L (73-393) Urine Color YELLOW Urine Appearance CLEAR (CLEAR) Urine pH 5.0 (4.5-7.5) Urine Specific [place] 1.018 (1.000-1.030) Urine Protein NEG (NEG) Urine Glucose (UA) NEG (NEG) Urine Ketones NEG (NEG) Urine Occult Blood NEG (NEG) Urine Nitrite NEG (NEG) Urine Bilirubin NEG (NEG) Urine Urobilinogen NEG (NEG) Urine Leukocyte Esterase TRACE (NEG) Urine WBC (Auto) 1-5 /hpf (0-5) Urine RBC (Auto) 0-4 /hpf (0-4) Urine Hyaline Casts (Auto) 0 /lpf (0-5) Urine Epithelial Cells (Auto) 0-5 /lpf (0-5) Urine Bacteria (Auto) NEG (NEG) Medications Administered Medications (Trade) Dose Ordered Sig/Keegan Route Start Time Stop Time Status Last Admin Dose Admin Sodium Chloride 500 ml @ 999 mls/hr Q31M STAT IV 03/06/17 15:53 03/06/17 16:23 DC 03/06/17 16:46 999 MLS/HR Sodium Chloride 1,000 ml @ 250 mls/hr Q4H STAT IV 03/06/17 15:53 03/06/17 19:52 DC 03/06/17 16:45 250 MLS/HR Piperacillin Sod/ Tazobactam Sod (Zosyn Iv) 4.5 gm NOW STAT IV 03/06/17 15:53 03/06/17 16:02 DC 03/06/17 16:46 4.5 GM ED Course The patient was seen and evaluated as above. His old records are reviewed. IV lock was initiated and he was hydrated with normal saline solution. He was given Zosyn 4.5 g IV. His old records indicated that he appeared to have an allergic reaction after receiving IV contrast for his CT scan last week. He developed some itching, nasal congestion, and a sensation of swelling in his throat. His symptoms responded to IV antihistamine and steroids. Given this reaction, CT scan of the abdomen and pelvis with oral contrast only was ordered. CBC with differential, CMP, lipase and urinalysis were collected. Patient tolerated the oral prep without difficulty. Laboratory studies demonstrated a normal white count at 8000, no left shift noted. H&H is normal. Electrolytes, renal functions, liver functions and lipase are within normal limits. Urinalysis is not indicative of infectious process. The patient remained comfortable and hemodynamically stable while awaiting CT scan. CT scan findings noted improving sigmoid diverticulitis without evidence of for abscess, bowel obstruction or free air. Appendix was visualized and was normal. Results of the patient's ED workup were discussed with him and his at length. Patient is responding appropriately to the oral antibiotics. He was encouraged to finish the Cipro and Flagyl as previously prescribed. He will continue to file a low residue diet until his symptoms resolve, and was encouraged to follow-up with his prior care practitioner as he has scheduled in about 2 weeks. There was discussion about a referral to gastroenterology for colonoscopy at his initial visit. Differential diagnoses entertained included reticulitis, bowel obstruction, perforation, abscess, hernia, infectious versus inflammatory colitis, C. difficile colitis, irritable bowel syndrome, among others. Medication reconciliation: I attest that I have personally reviewed the patient' s current medication list. Blood pressure screening : Patient was found to have normal blood pressure on screening and does not require follow-up. Medical Decision See Emergency Department course. Impression Primary Impression: Sigmoid diverticulitis Departure Information Referrals Gina Phelan C.R.N.P. (PCP) Forms Call Back Authorization, HOME CARE DOCUMENTATION FORM, IMPORTANT VISIT INFORMATION Patient Instructions My [facility] Additional Instructions Finish Cipro and Flagyl as previously prescribed. Acetaminophen(Tylenol) may be used for fever or pain. Use 1000mg every eight hours as needed. Avoid using more than 3000mg in a 24 hour period. This is available over the counter. Rest and drink plenty of fluids as tolerated. Slow sips of water or sports drinks are recommended instead of large amounts all at once. Continue current medications. Once your stomach is settled start with a clear liquid diet (jello, soup broth, etc.) and then advance as tolerated. You should avoid full, heavy meals for about 24 hrs from the time your symptoms resolved. Return to the ER immediately for worsening or persistent abdominal pain, vomiting, fevers, chest pains, difficulty breathing, black or bloody stools, worsening of your condition, or as needed. Follow up with your primary physician as scheduled for a recheck of your current condition.
[2017-03-06 19:32] VITALS: BP 113/77; PULSE 55; O2SAT 99
== END 2017-03-06 19:43 | disposition home or self-care (01) ==
LOC: C.EDB 14:43 → C.EDA 19:43
DX: K57.32 Diverticulitis of large intestine without perforation or abscess without bleeding (principal)